=== PATIENT | female | born 1955 | race Caucasian/White ===

== ENCOUNTER 2021-03-05 21:49 | Emergency (ER) | payer MEDICARE ==
[~2021-03-05] VITALS: Ht 154.9 cm; Wt 52.6 kg
[2021-03-05 22:40] LABS: ABSOLUTE EOSINOPHILS 0.2 thou/uL (0.0-0.7); ABSOLUTE LYMPHOCYTES 1.6 thou/uL (0.8-5.3); ABSOLUTE MONOCYTES 0.4 thou/uL (0.0-1.2); ABSOLUTE NEUTROPHILS 2.3 thou/uL (1.6-8.1); BASOPHILS 0.7 %; EOSINOPHILS 5.5 %; HEMOGLOBIN 8.1 gm/dL (12.0-15.0); LYMPHOCYTES 35.4 %; MCH 18.7 pg (26.0-34.0); MCHC 30.2 g/dL (28.0-37.0); MCV 61.9 fL (80.0-100.0); MONOCYTES 7.8 %; NUCLEATED RBCS 0 /100WBC; PLATELET COUNT* 260 thou/uL (150-400); POLYS 50.6 %; RBC 4.36 mil/uL (4.20-5.00); RDW-CV 20.2 % (10.5-14.5); WBC 4.5 thou/uL (4.0-11.0)
[2021-03-05 22:47] LABS: CALCIUM 8.7 mg/dL (8.5-10.1); CREATININE 0.9 mg/dL (0.6-1.3); POTASSIUM 3.9 mmol/L (3.5-5.1)
[2021-03-05 23:23] LABS: URINE BILIRUBIN NEGATIVE (Negative); URINE BLOOD NEGATIVE (Negative); URINE CLARITY CLEAR; URINE COLOR YELLOW; URINE GLUCOSE-RANDOM NEGATIVE (Negative); URINE KETONES NEGATIVE (Negative); URINE LEUKOCYTES-REFLEX TRACE (Negative); URINE NITRITE-REFLEX NEGATIVE (Negative); URINE PROTEIN NEGATIVE (Negative); URINE UROBILINOGEN 0.2 E.U./dl (0.2-1.0)
[2021-03-05 23:43] LABS: CASTS None Seen /LPF (None Seen); CRYSTALS None Seen /LPF (None Seen); MUCUS 0-3 Light strn/LPF (None Seen); SQUAMOUS 0-3 Few /LPF (0-3); TRANSITIONAL EPITHEL CELL 0-3 Few /LPF (None Seen); URINE RBC 0-2 Rare /HPF (0-2); URINE WBC-REFLEX 6-15 Few /HPF (0-5)
[2021-03-06] MEDS ORDERED: PROAIR HFA8.5 GM INH ×2 (00:52→00:53)
[2021-03-06 02:26] VITALS: BP 163/69
[2021-03-06 05:19] LABS: HYPOCHROMASIA 2+; MICROCYTES 3+; POLYCHROMASIA 1+
[2021-03-06 05:20] LABS: ANISOCYTOSIS 2+; POIKILOCYTOSIS 1+
[2021-03-07] MEDS ORDERED: DESYREL150 MG PO (11:31)
--- NOTE | 2021-03-08 14:16 | EKG ---
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
== END 2021-03-06 02:26 | disposition home or self-care (01) ==
LOC: M.ERS 21:49
PROVIDERS: Emergency Medicine
DX: F41.9 Anxiety disorder, unspecified (principal); D64.9 Anemia, unspecified; Z90.49 Acquired absence of other specified parts of digestive tract

== ENCOUNTER 2021-03-07 11:25 | Emergency (ER) | payer MEDICARE ==
[~2021-03-07] VITALS: Ht 162.6 cm; Wt 51.4 kg
[~2021-03-07 11:25] MED LIST: PROAIR HFA8.5 GM INH
[2021-03-07] MEDS ORDERED: DESYREL150 MG PO (11:31)
[2021-03-07 11:52] VITALS: BP 164/86
== END 2021-03-07 11:55 | disposition home or self-care (01) ==
LOC: M.ERS 11:25
DX: F41.9 Anxiety disorder, unspecified (principal); Z90.49 Acquired absence of other specified parts of digestive tract

== ENCOUNTER 2021-03-07 14:13 | Emergency (ER) | payer MEDICARE, MEDICAID ==
[~2021-03-07] VITALS: Ht 154.9 cm; Wt 52.2 kg
[~2021-03-07 14:13] MED LIST changes: +DESYREL150 MG PO
[2021-03-07 14:49] LABS: URINE BILIRUBIN NEGATIVE (Negative); URINE BLOOD NEGATIVE (Negative); URINE COLOR YELLOW; URINE GLUCOSE-RANDOM NEGATIVE (Negative); URINE KETONES NEGATIVE (Negative); URINE LEUKOCYTES-REFLEX TRACE (Negative); URINE NITRITE-REFLEX NEGATIVE (Negative); URINE PROTEIN NEGATIVE (Negative); URINE SPECIFIC GRAVITY 1.015 (1.005-1.030); URINE UROBILINOGEN 0.2 E.U./dl (0.2-1.0)
[2021-03-07 14:53] LABS: URINE CLARITY HAZY
[2021-03-07 14:54] LABS: ABSOLUTE BASOPHILS 0.1 thou/uL (0.0-0.2); ABSOLUTE EOSINOPHILS 0.1 thou/uL (0.0-0.7); ABSOLUTE LYMPHOCYTES 1.3 thou/uL (0.8-5.3); ABSOLUTE MONOCYTES 0.5 thou/uL (0.0-1.2); ABSOLUTE NEUTROPHILS 3.2 thou/uL (1.6-8.1); BASOPHILS 1.7 %; EOSINOPHILS 2.3 %; HEMATOCRIT 28.1 % (37.0-47.0); HEMOGLOBIN 8.3 gm/dL (12.0-15.0); LYMPHOCYTES 24.8 %; MCH 18.4 pg (26.0-34.0); MCHC 29.6 g/dL (28.0-37.0); MONOCYTES 9.6 %; MPV 8.1 fl. (7.2-11.1); NUCLEATED RBCS 0 /100WBC; PLATELET COUNT* 299 thou/uL (150-400); POLYS 61.6 %; RBC 4.54 mil/uL (4.20-5.00); RDW-CV 19.7 % (10.5-14.5); WBC 5.1 thou/uL (4.0-11.0)
[2021-03-07 14:57] LABS: AMP/METHAMP Negative (Negative); BARBITURATES Negative (Negative); BENZODIAZEPINES POSITIVE (Negative); COCAINE Negative (Negative); METHADONE Negative (Negative); OPIATES Negative (Negative); PCP Negative (Negative); THC Negative (Negative)
[2021-03-07 15:13] LABS: PLATELET ESTIMATE ADEQUATE
[2021-03-07 15:14] LABS: BACTERIA-REFLEX None Seen /HPF (None Seen); CASTS None Seen /LPF (None Seen); CRYSTALS None Seen /LPF (None Seen); SQUAMOUS 4-10 Moderate /LPF (0-3); URINE RBC None Seen /HPF (0-2); URINE WBC-REFLEX 0-5 Rare /HPF (0-5)
[2021-03-07 15:16] LABS: CALCIUM 8.9 mg/dL (8.5-10.1); CREATININE 0.9 mg/dL (0.6-1.3); POTASSIUM 4.5 mmol/L (3.5-5.1)
[2021-03-07 15:18] LABS: ANISOCYTOSIS 1+; HYPOCHROMASIA 1+; MICROCYTES 1+
[2021-03-07 15:21] LABS: ALBUMIN 3.9 g/dL (3.4-5.0); TOTAL BILIRUBIN 0.3 mg/dL (<0.1-1.0); TOTAL PROTEIN 6.6 g/dL (6.4-8.2)
[2021-03-07 15:42] LABS: ACETAMINOPHEN < 2 ug/mL (10-30); ALCOHOL < 10 mg/dL (<10); SALICYLATE < 2.8 mg/dL (2.8-20.0)
[2021-03-07 21:25] VITALS: BP 124/60
== END 2021-03-07 21:25 ==
LOC: M.ERS 14:13
PROVIDERS: Emergency Medicine Emergency Medical Services
DX: R45.851 Suicidal ideations (principal); Z20.822 Contact with and (suspected) exposure to COVID-19; F41.9 Anxiety disorder, unspecified; Z90.49 Acquired absence of other specified parts of digestive tract; Z79.899 Other long term (current) drug therapy

== ENCOUNTER 2021-04-08 23:06 | Emergency (ER) | payer MEDICARE, MEDICAID ==
[~2021-04-08] VITALS: Ht 154.9 cm; Wt 49.9 kg
[2021-04-09] MEDS ORDERED: PREDNISONE50 MG PO (06:49)
[2021-04-09] MEDS ORDERED: VENTOLIN HFA 1818 GM INH (06:50)
[2021-04-09 07:00] VITALS: BP 134/68
== END 2021-04-09 07:01 | disposition home or self-care (01) ==
LOC: M.ERS 23:06
DX: U07.1 COVID-19 (principal); J44.1 Chronic obstructive pulmonary disease with (acute) exacerbation; F17.200 Nicotine dependence, unspecified, uncomplicated; Z90.49 Acquired absence of other specified parts of digestive tract